=== PATIENT | male | born 1965 | race African-American/Black ===

== ENCOUNTER 2023-06-04 14:11 | Outpatient (REF) | payer OTHER, SELFPAY | END 2023-06-04 14:12 | disposition home or self-care (01) | LOC: HO.LAB 14:11 | PROVIDERS: PCP Student in an Organized Health Care Education/Training Program; Visit Provider Psychiatry & Neurology Neurology | DX: M62.81 Muscle weakness (generalized) (principal) | CPT/HCPCS: 36415; 82085; 82550 ==

== ENCOUNTER 2023-07-31 13:05 | Outpatient (AMB) | payer OTHER, SELFPAY ==
--- NOTE | 2023-07-31 13:14 | A.OFFVIS_ITS ---
Intake Vital Signs 07/31/23 13:19 Height 5 ft 7 in Weight 197 lb BMI 30.9 BP 137/83 Blood Pressure Location Lt brachial Position Sitting Pulse 62 Intake Visit Reasons: MS w/ peripheral neuropathy, muscle bx Intake Note: Patient is seen in office for evaluation and treatment of peripheral neuropathy, possible muscle bx. 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 He reports a 3 year history of symptoms beginning with back pain. He has a prior history of peripheral neuropathy involving his hands and feet. The back pain began after working in the yard and picking heavy object. The pain persisted and he eventually underwent back steroid injections. [place] his symptoms worsened over time and now is having difficulty with ambulation. This occurs even while walking on flat ground but is much worse going up and down stairs. He was noted to have elevated creatinine kinase levels. He was evaluated by Dr. Duff from Neurology and recommendation made for a muscle biopsy to help with the diagnosis. He reports symptoms are worse on his left leg than the right leg. He denies fever, chills, nausea or vomiting. PENDING SALE TO [facility] Medical History (Updated 07/31/23 @ 13:58 by Andi Koch MD) Polyneuropathy, unspecified Family History (Updated 07/31/23 @ 13:30 by VIDAL Carroll) Father No problems noted. Social History (Updated 07/31/23 @ 13:18 by VIDAL Carroll) Alcohol intake: never Patient Tobacco Use Status: Never used Tobacco Review of Systems Const All systems reviewed & are unremarkable except as noted in HPI and below Denies chills, Denies fever(s), Denies headache(s), Denies poor appetite and Denies weakness ENT Denies headache(s) Card Denies chest pain, Denies irregular heart rhythm, Denies palpitations and Denies dyspnea Resp Denies cough, Denies excessive phlegm production and Denies dyspnea GI Denies abdominal pain, Denies bloating, Denies change in bowel habits, Denies co nstipation, Denies heartburn, Denies diarrhea, Denies nausea and Denies vomiting Denies difficulty urinating and Denies urinary frequency Musc Reports as per HPI, Reports back pain, Reports muscle weakness, Reports numbness and Reports radiating pain into limb Skin/Breast Denies changing lesions and Denies unusual bruising Neuro Denies headache(s), Reports numbness, Denies paresthesias and Denies weakness Psych Denies anxiety and Denies depression Endo Denies palpitations Oren/Lymph Denies lymphadenopathy Physical Exam Vital Signs: Last Vital Signs Pulse 62 07/31/23 13:19 BP 137/83 07/31/23 13:19 BMI result Body Mass Index 30.9 Const General: cooperative and no acute distress Nutritional Appearance: well nourished Orientation/consciousness: patient oriented x3 Limitations: no limitations HEENT Head: Yes normocephalic and Yes atraumatic Ears: hearing grossly normal bilaterally Resp Effort & Inspection: normal respiratory effort, no audible wheezes, no cough and no respiratory distress Cardio Jugular venous distension: no JVD GI Inspection: Yes normal to inspection Skin Other: Warm, dry, no rash Neuro General: patient oriented x3 Extrem General: Yes no clubbing, cyanosis or edema Assessment & Plan Assessment & Plan (1) Muscular dystrophy, unspecified: Code(s): G71.00 - Muscular dystrophy, unspecified (2) Polyneuropathy, unspecified: Code(s): G62.9 - Polyneuropathy, unspecified Plan 57-year-old male patient with lower extremity weakness and peripheral neuropathy presenting for possible muscle biopsy. After discussion of the procedure, risks, and alternatives, he consents to a left thigh muscle biopsy which will be performed as a short-stay surgery at his earliest convenience. Orders: Orders Lyme IgG/IgM w/reflex to WB Today G62.9 - Polyneuropathy, unspecified Coding Level of Care Code New Pt Level 4 (94844) Diagnoses Muscular dystrophy, unspecified G71.00 Polyneuropathy, unspecified G62.9
[2023-07-31 13:19] VITALS: BP 137/83; PULSE 62; BMI 30.9
[2023-08-02 05:45] LABS: Lyme Abs Screen <0.90 index
== END 2023-07-31 13:31 | disposition home or self-care (01) ==
PROVIDERS: PCP Student in an Organized Health Care Education/Training Program; Referring Provider Psychiatry & Neurology Neurology; Visit Provider Surgery
DX: G71.00 Muscular dystrophy, unspecified (principal); G62.9 Polyneuropathy, unspecified
CPT/HCPCS: 99204

== ENCOUNTER → 2023-07-31 13:05 | Outpatient (BNVA) | payer OTHER, SELFPAY | PROVIDERS: PCP Student in an Organized Health Care Education/Training Program; Referring Provider Psychiatry & Neurology Neurology; Visit Provider Surgery | DX: G71.00 Muscular dystrophy, unspecified (principal); G62.9 Polyneuropathy, unspecified | CPT/HCPCS: 36415; 86617; 86618; 99202 ==

== ENCOUNTER 2023-08-08 10:26 | Day surgery (SDC) | payer OTHER, SELFPAY ==
--- NOTE | 2023-08-07 09:09 | HO.ANESPROP2 ---
HPI - Anesthesia Eval Consult details Narrative: 57yo M for Left Thigh Muscle Biopsy PMFSH Active Problems Active Problems: All Active Problems (Updated 07/31/23 @ 13:58 by Andi Koch MD) Polyneuropathy, unspecified (Acute) Muscular dystrophy, unspecified (Acute) Past Medical History Medical History Polyneuropathy, unspecified Family History Family History Father No problems noted. Social History Social History Alcohol intake: never Patient Tobacco Use Status: Never used Tobacco Meds Allergies Allergy/AdvReac Type Severity Reaction Status Date / Time No Known Allergies Allergy Verified 07/31/23 13:30 Home Medications Medication Instructions Recorded Confirmed Last Taken Type ergocalciferol (vitamin D2) 1,250 1,250 mcg PO QWEEK 07/31/23 08/08/23 Unknown History mcg (50,000 unit) capsule gabapentin 300 mg capsule 300 mg PO DAILY 07/31/23 08/08/23 Unknown History Exam Exam Date and Time: August 07, 2023908 Assessment and Plan Assessment Anesthesia Assessment: Chart Reviewed
--- NOTE | 2023-08-08 09:59 | PC.NURSE ---
call to pt made answer machine message left at 0930 reminder for arrival time of 0900. 0940 return call received. pt heading in
[2023-08-08 10:37] VITALS: BMI 30.5
[2023-08-08 10:41] VITALS: BP 116/74; PULSE 57; RESP 18; TEMP 36.6; O2SAT 98
[2023-08-08] MEDS: Lactated Ringers 1,000 ML 100 ML IVCONT (11:18)
--- NOTE | 2023-08-08 12:04 | HO.ANESPROP2 ---
FORM[facility]LY [facility], LATER [facility] Active Problems Active Problems: All Active Problems (Updated 07/31/23 @ 13:58 by Andi Koch MD) Polyneuropathy, unspecified (Acute) Muscular dystrophy, unspecified (Acute) Past Medical History Medical History Polyneuropathy, unspecified Family History Family History Father No problems noted. Family history of problems with anesthesia: No Surgical History History of Problems with Anesthesia: Yes Social History Social History Alcohol intake: never Patient Tobacco Use Status: Never used Tobacco Use of substances other than those prescribed or required for medical reasons: Yes Substance Use Type Other:: qod Are you DNR?: No Advance Directives: No Advance Directives Information Provided: Yes Meds Allergies Allergy/AdvReac Type Severity Reaction Status Date / Time No Known Allergies Allergy Verified 07/31/23 13:30 Active Medications: Current Medications Lactated Ringer's (Lr) 1,000 mls @ 100 mls/hr IVCONT .Q10H ELAN Last Admin: 08/08/23 11:18 Dose: 100 mls/hr Home Medications Medication Instructions Recorded Confirmed Last Taken Type ergocalciferol (vitamin D2) 1,250 1,250 mcg PO QWEEK 07/31/23 08/08/23 Unknown History mcg (50,000 unit) capsule gabapentin 300 mg capsule 300 mg PO DAILY 07/31/23 08/08/23 Unknown History Exam Exam Date and Time: August 08, 2023 1204 Height,Weight and Vital Signs: Height 5 ft 7 in Weight 88.451 kg Last Vital Signs Temp 97.8 F 08/08/23 10:41 Pulse 57 08/08/23 10:41 Resp 18 08/08/23 10:41 BP 116/74 08/08/23 10:41 Pulse Ox 98 08/08/23 10:41 O2 Del Method Room Air 08/08/23 10:41 Airway Mallampati Class: II TM Dist: >3cm Neck ROM: Full Heart: RRR Lungs: CTA Assessment and Plan Assessment Anesthesia Assessment: Anesthesia Plan Discussed and Smoking Cess. Discussed Final Anesthetic Review Family History of Problems with Anesthesia: No History of Problems with Anesthesia: Yes ASA Class: II Final Preanesthetic Review: Meds/Allgs Chart Reviewed, Consent Obtained/Reviewed and Anes Risks/Benef Reviewed Patient Risk: Low Procedure Risk: Low Anesthetic Plan Anesthetic Plan: MAC: Disposition: Standard PACU
--- NOTE | 2023-08-08 12:08 | P.OP_ITS ---
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 After administering light sedation the patient has left leg was prepped with ChloraPrep and draped in a sterile fashion. A surgical time-out was called the consent confirmed. Patient received preoperative antibiotics and Venodyne boots were in place. Local anesthesia was then infiltrated in a longitudinal fashion in the lateral left upper thigh. Incision was then made with a scalpel carried out through subcutaneous tissue to the muscle fascia. This was then incised with electrocautery in wide with Metzenbaum scissors. Muscle was then identified consistent with vastus lateralis. Hemostat was then placed below of portion of the muscle and ties placed above and below. A 12 mm clamp was then used to grasp the muscle. The muscle was then divided using Metzenbaum scissors. A 2nd specimen measuring 10 mm was then obtained again using a clamp to obtain the specimen. Both specimens were wrapped in saline solution and sent immediately to pathology. Wounds were then checked for hemostasis. Hemostasis was assured using electrocautery. Wounds were irrigated with saline solution and suctioned dry. The fascia was then closed using interrupted 3-0 Polysorb sutures. Dermis was reapproximated using interrupted 3-0 Polysorb sutures. Skin was then closed using a running subcuticular 4-0 Polysorb suture. Steri-Strips, 2 x 2 gauze and Tegaderm were then applied. The patient tolerated the procedure well. Sponge, instrument, needle counts reported as correct. The patient was transferred to PACU in stable condition.
[2023-08-08 12:29] VITALS: BP 116/75; PULSE 74; RESP 16; TEMP 36.5; O2SAT 100
[2023-08-08 12:44] VITALS: BP 125/80; PULSE 60; RESP 16; O2SAT 98
[2023-08-08 12:59] VITALS: BP 127/80; PULSE 59; RESP 16; O2SAT 99
[2023-08-08 13:14] VITALS: BP 134/78; PULSE 60; RESP 16; O2SAT 99
[2023-08-08 13:30] VITALS: BP 142/81; PULSE 68; RESP 18; TEMP 36.7; O2SAT 99
== END 2023-08-08 14:20 | disposition home or self-care (01) ==
PROVIDERS: PCP Student in an Organized Health Care Education/Training Program; Visit Provider Surgery
PROC: (CPT 20205; principal; 2023-08-08 10:50)
DX: G71.00 Muscular dystrophy, unspecified (principal); G62.9 Polyneuropathy, unspecified; Z79.899 Other long term (current) drug therapy
CPT/HCPCS: 20205; 88300; 88305; 88313; 88319; 88348; J0690; J2250

== ENCOUNTER → 2023-08-08 10:26 | Outpatient (BNV) | payer OTHER, SELFPAY | PROVIDERS: PCP Student in an Organized Health Care Education/Training Program; Visit Provider Surgery | DX: M33.22 Polymyositis with myopathy (principal) | CPT/HCPCS: 20205 ==

== ENCOUNTER 2023-08-17 11:23 | Outpatient (AMB) | payer OTHER, SELFPAY ==
--- NOTE | 2023-08-17 11:27 | MHC.OFFVIS ---
Intake Vital Signs 08/17/23 11:38 Height 5 ft 7 in Weight 196 lb 10.437 oz BMI 30.8 Respiration 16 Pulse 70 Intake Visit Reasons: S/P muscle bx Lt thigh Intake Note: Patient is seen in office for post op assessment post muscle biopsy of the left thigh. Patient c/o: admits to sore in the area, here for results [employer] Required: No Accompanied by: Self / Same As Patient Allergies No Known Allergies Allergy (Verified 08/17/23 11:42) Medication List - Last Reconciled 08/21/23 by Andi Koch MD ergocalciferol (vitamin D2) 1,250 mcg PO QWEEK gabapentin 300 mg PO DAILY oxycodone 5 mg PO Q6H PRN HPI HPI Comments History of Present Illness Details 57-year-old male patient returning following left thigh muscle biopsy. He tolerated the procedure well and denies any ongoing symptoms. Pathology results are pending at this time. [facility] Medical History Polyneuropathy, unspecified Surgical History History of biopsy (08/08/23) Family History Father No problems noted. Social History Alcohol intake: never Patient Tobacco Use Status: Never used Tobacco Physical Exam Vital Signs: Last Vital Signs Pulse 70 08/17/23 11:38 Resp 16 08/17/23 11:38 BMI result Body Mass Index 30.8 Const General: comfortable Nutritional Appearance: well nourished Orientation/consciousness: patient oriented x3 Resp Effort & Inspection: normal respiratory effort, no audible wheezes and no cough Neuro General: patient oriented x3 Extrem Other: Longitudinal incision in the upper left thigh is clean, dry, and intact without redness or discharge. No hematoma or seroma is appreciated. Assessment & Plan Assessment & Plan (1) Polyneuropathy, unspecified: Code(s): G62.9 - Polyneuropathy, unspecified (2) Muscular dystrophy, unspecified: Code(s): G71.00 - Muscular dystrophy, unspecified Plan Patient returns 1 week following left thigh muscle biopsy. Tolerated the procedure well and his wounds are healing nicely. We are still awaiting pathology from [facility]. This will be forwarded to neurology when available. Coding Level of Care Code Global (29314) Diagnoses Polyneuropathy, unspecified G62.9 Muscular dystrophy, unspecified G71.00
[2023-08-17 11:38] VITALS: PULSE 70; RESP 16; BMI 30.8
== END 2023-08-17 12:02 | disposition home or self-care (01) ==
PROVIDERS: PCP Student in an Organized Health Care Education/Training Program; Visit Provider Surgery
DX: G62.9 Polyneuropathy, unspecified (principal); G71.00 Muscular dystrophy, unspecified
CPT/HCPCS: 99212

== ENCOUNTER → 2023-08-17 11:23 | Outpatient (BNVA) | payer OTHER, SELFPAY | PROVIDERS: PCP Student in an Organized Health Care Education/Training Program; Visit Provider Surgery | DX: G62.9 Polyneuropathy, unspecified (principal); G71.00 Muscular dystrophy, unspecified; Z98.890 Other specified postprocedural states | CPT/HCPCS: 99212 ==

== ENCOUNTER 2024-03-18 13:50 | Outpatient (REF) | payer OTHER, SELFPAY ==
[2024-03-18 15:03] LABS: Anion Gap 11 (12-20); Blood Urea Nitrogen 16 mg/dL (9-16); Calcium 9.5 mg/dL (8.4-10.2); Carbon Dioxide 26 mmol/L (22-29); Chloride 108 mmol/L (96-108); Estimated Glomerular Filt Rate > 60; Glucose Random 78 mg/dL (60-115); Potassium 4.3 mmol/L (3.3-5.1); Sodium 141 mmol/L (135-145)
[2024-03-18 15:32] LABS: Folate 6.8 ng/mL (> or = 4.0); Vitamin B12 577 pg/mL (200-900)
[2024-03-19 04:06] LABS: Syphilis Screen Nonreactive (Nonreactive)
== END 2024-03-18 13:51 | disposition home or self-care (01) ==
LOC: HO.LAB 13:50
PROVIDERS: Visit Provider Psychiatry & Neurology Neurology
DX: G62.9 Polyneuropathy, unspecified (principal)
CPT/HCPCS: 36415; 80048; 82607; 82746; 86780

== ENCOUNTER 2025-06-09 12:43 | Outpatient (AMB) | payer OTHER, SELFPAY ==
--- NOTE | 2025-06-09 12:47 | A.OFFVIS_ITS ---
Intake Visit Reasons: fu Allergies No Known Allergies Allergy (Verified 08/17/23 11:42) Medication List - Last Reconciled 06/09/25 by William Duff MD duloxetine 20 mg PO DAILY ergocalciferol (vitamin D2) 1,250 mcg PO QWEEK gabapentin 300 mg PO DAILY lisinopril 20 mg PO DAILY oxycodone 5 mg PO Q6H PRN HPI Comments Details: 59 yo man with myopathy of unknown cause, and neuropathy symptoms treated wt gabapentin. Muscle biopsy showed changes suggestive of underlying neuropathic process. [facility] Medical History (Updated 06/09/25 @ 12:53 by William Duff MD) Fibromyalgia Myopathy Peripheral neuropathy Polyneuropathy, unspecified Surgical History History of biopsy (08/08/23) Family History Father No problems noted. Social History Alcohol intake: never Patient Tobacco Use Status: Never used Tobacco Assessment & Plan Assessment & Plan (1) Fibromyalgia: Comment: Meds tried: Duloxetine, Gabapentin Muscle biopsy at [facility] in Jul 2023: rare angulated atrophic fibers (probably neuropathic injury) MRI LS spine WO at [facility] in March 2023: Mild DJD MRI T spine WO at [facility] in March 2023: Mild DJD NCV/EMG LE (in office) Moderately severe right peroneal neuropathy. Mild peripheral neuropathy affecting sensory nerves. 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
--- OUTSIDE RECORDS SUMMARY | 2025-06-09 13:56 | XMS_ITS | Clinical Summary ---
Author Organization [facility] Address [address] [place] [address] Phone Care Team Providers Care Rest Room Matron Name Role Phone Braden Bey MD Primary Care Provider [phone] Allergies Active Allergy Reactions Criticality Noted Date Comments Onion 10/14/2021 Pepper (Genus Capsicum) 10/14/2021 Medications tadalafiL (CIALIS) 5 mg tablet Take 1 Tablet by mouth daily. 2 Active meloxicam (MOBIC) 7.5 mg tablet Take 1 tablet (7.5 mg total) by mouth at bedtime as needed for moderate pain or mild pain. 90 tablet 2 5 Active ferrous sulfate 325 mg (65 mg iron) EC tablet Take 1 tablet (325 mg total) by mouth 1 (one) time each day with breakfast. Do not crush, chew, or split. 90 each 1 5 025 Active ascorbic acid (Vitamin C) 250 mg tablet Take 1 tablet (250 mg total) by mouth 1 (one) time each day. 90 each 1 5 025 Active acetaminophen (TYLENOL) 500 mg tablet Take 1 tablet (500 mg total) by mouth every 6 (six) hours if needed for mild pain. for pain 60 tablet 4 5 Active fexofenadine (RFANKI) 180 mg tablet TAKE 1 TABLET BY MOUTH EVERY DAY 90 tablet 1 5 Active lisinopriL (PRINIVIL,ZEST RIL) 20 mg tablet TAKE 1 TABLET BY MOUTH EVERY DAY 90 tablet 1 5 Active lisinopriL (PRINIVIL,ZEST RIL) 20 mg tablet TAKE 1 TABLET BY MOUTH EVERY DAY 90 tablet 1 4 025 Discontinued Active Problems Problem Noted Date Diagnosed Date Primary hypertension 01/07/2025 Erectile dysfunction 01/07/2025 Prediabetes 01/07/2025 Childhood asthma 09/18/2024 Constipation 11/20/2023 Gastroesophageal reflux disease 11/20/2023 Neuropathy 10/02/2023 Overview (09/18/2024): Last Assessment & Plan: Mr. Partida continues with numbness and tingling and pain in the bilateral anterior thighs. He had an evaluation and an EMG and nerve conduction study with Dr. Duff in [place]. This did reveal a moderately severe right peroneal neuropathy and mild peripheral neuropathy affecting the sensory nerves. I once again went over his MRI's of the thoracic and lumbar spine from [facility] in March 2023. These did show stable L5-S1 degenerative disc disease and no high-grade stenosis. Dr. Richey does not have any surgery to offer at this time. We talked about physical therapy, acupuncture, chiropractic treatment, and yoga all as reasonable conservative modalities. He may get some relief by increasing his gabapentin dose schedule. He is welcome to follow-up with us in the future on an as-needed basis. Vitamin D deficiency 01/25/2023 BPH (benign prostatic hyperplasia) 11/06/2022 Gastritis 11/02/2020 Lumbar radiculitis 11/02/2020 DDD (degenerative disc disease), lumbar 05/25/20 20 Overview (09/18/2024): Last Assessment & Plan: Mr. Partida has had progression in his symptoms since this all started with lower back pain 3 years ago. He has had no history of back surgery but underwent 2 cortisone injections 3 years ago. This has progressed such that he feels numb from his waist down for the past 6 months. He demonstrates this is starting with his hands on his hips and going to his feet. The left leg is significantly worse and it is described as being extremely painful on the inside, not the bone or the muscle, it just hurts he drags it as he is walking. He tends to lead with that leg because he uses his hand to push it forward. He denies incontinence but states that he has had decrease sensation with bowel movements. On further questioning, he denies neck pain but says his hands go numb, he feels there is been loss of muscle mass in the left leg and that his left ankle get stuck On exam, there is general decrease sensation to light touch below the hip, strength is 5/5 though with some delay in left hip flexion and knee extension. Reflexes are slightly brisk 2+ at the knees left more than right with 2-3 beats of clonus on the right. His gait appears a little stiff and spastic. Review of his lumbar spine MRI from September 2021 shows mild disc desiccation at L5-S1 with loss of height posteriorly. There is no central or foraminal stenosis. At this point, I am going to send him for repeat lumbar spine MRI with a thoracic MRI to evaluate for cord compression to account for decreased perineal sensation, heaviness in the left leg, this general feeling of numbness and left lower extremity atrophy. If this is unrevealing, I will send him to neurology for an assessment and probable EMG. Anxiety 08/30/2018 Depression 08/30/2018 PTSD (post-traumatic stress disorder) 08/30/2018 Anatomical narrow angle 07/15/2018 Astigmatism with presbyopia, bilateral 8 Immunizations Name Administration Dates Next Due Moderna SARS-CoV-2 COVID-19, mRNA, LNP-S, preservative free 03/31/2021,03/07/2021 Td Tetanus diptheria (Tdvax) 7yo and older 11/26 Surgical History Surgery Date Site/Laterality Comments COLONOSCOPY 11/26/2018 - 11/25/2019 Medical History Medical History Date Comments Childhood asthma DX:Childhood as thma PTSD (post-traumatic stress disorder) 08/30/2018 DX:PTSD (post-traumatic stress disorder) Anxiety 08/30/2018 DX:Anxiety Depression 08/30/2018 DX:Depression History of Helicobacter pylo ri infection 11/02/2020 DX:History of Helicobacter p ylori infection Gastritis 11/02/2020 DX:Gastritis BPH (benign prostatic hyperplasia) 11/06/2022 DX:BPH (benign prostatic hyperplasia) DDD (degenerative disc disease), lumbar 05/25/20 20 DX:DDD (degenerative disc disease), lumbar Astigmatism with presbyopia, bilateral 8 DX:Astigmatism with presbyopia, bilateral Lumbar radiculitis 11/02/2020 DX:Lumbar rad iculitis Vitamin D deficiency DX:Vitamin D deficiency Gastroesophageal reflux disease 11/20/2023 DX:Gastroesophageal reflux disease Primary hypertension 01/07/2025 Family History Medical History Relation Name Comments No Known Problems Aunt No Known Problems Brother No Known Problems Father No Known Problems Maternal Grandfather No Known Problems Maternal Grandmother Other: Diabetes, Hypertension Mother No Known Problems Other No Known Problems Paternal Grandfather No Known Problems Paternal Grandmother No Known Problems Sister No Known Problems Uncle father side Blindness Neg Hx Cataracts Neg Hx Glaucoma Neg Hx Macular degeneration Neg Hx Strabismus Neg Hx Relation Name Status Comments Aunt Brother Alive Father Alive Maternal Grandfather Maternal Grandmother Mother Alive Other Paternal Grandfather Paternal Grandmother Sister Alive Uncle father side Alive Social History Tobacco Use Types Packs/Day Years Used Date Smoking Tobacco: Former Cigarettes 0.5 17 0 11/26/1979 - 11/26/1996 Smokeless Tobacco: Never Tobacco Cessation:Counseling Given: Not Answered Alcohol Use Standard Drinks/Week Comments Yes 0 (1 standard drink = 0.6 oz pur e alcohol) occ8 Education Answer Date Recorded What is the highest level of school you have completed or the highest degree you have received? GED or equivalent 10/2025 Sex and Gender Information Value Date Recorded Sex Assigned at Not on file Legal Sex Male 4:24 AM EST Gender Identity Not on file Sexual Orientation Not on file Obstetrics History Last Filed Vital Signs Vital Sign Reading Time Taken Comments Blood Pressure 132/86 01/07/2025 11:15 AM EST Pulse 65 01/07/2025 11:15 AM EST Temperature 36.1 C (97 F) 09/30/2024 8:54 AM EST Respiratory Rate - - Oxygen Saturation 98% 01/07/2025 11:15 AM EST Inhaled Oxygen Concentration - - Weight 90.7 kg (200 lb) 01/07/2025 11:15 AM EST Height 170.2 cm (5' 7 ) 10/31/2024 9:08 AM EST Body Mass Index 31.32 10/31/2024 9:08 AM EST Plan of Treatment Health Maintenance Due Date Last Done Comments Pneumococcal Vaccine: 50+ Years (1 of 2 - PCV) 1984 Zoster Vaccines (1 of 2) 2015 Hepatitis B Vaccines (2 of 3 - 19+ 3-dose series) 02/20/2017 01/23/2017 HIV Screening 11/04/2022 COVID-19 Vaccine (3 - 2023-2 5 season) 2024 03/31/2021, 03/07/2021 Influenza Vaccine (#1) 2025 Depression Screening 01/07/2026 01/07/2025 Social Influencers of Health Screening 01/07/2026 01/07/2025 Hypertension/CHF/CAD Annual BMP Blood Test 01/14/2026 01/14/2025, 01/24/2023 DTaP,Tdap,and Td Vaccines (3 - Td or Tdap) 01/23/2027 01/23/2017, 11/26/2016 Colorectal Cancer Screening: Colonoscopy 08/05/2029 08/05/2019 Cholesterol Screening (Lipid Panel) 01/14/2030 01/14/2025, 01/24/2023 RSV Immunization Adult Patients (1 - 1-dose 75+ series) 2040 Hepatitis C Screening Completed 11/05/2019 HIB Vaccines Aged Out No longer eligi ble based on patient's age to complete this topic HPV Vaccines Aged Out No longer eligi ble based on patient's age to complete this topic Hepatitis A Vaccines Aged Out No long er eligible based on patient's age to complete this topic IPV Vaccines Aged Out No longer eligi ble based on patient's age to complete this topic MMR Vaccines Aged Out No longer eligi ble based on patient's age to complete this topic Meningococcal ACWY Vaccine Aged Out N o longer eligible based on patient's age to complete this topic Meningococcal B Vaccine Aged Out No l onger eligible based on patient's age to complete this topic RSV Immunization Patients Under 20 months Aged Out No longer eligible b ased on patient's age to complete this topic Varicella Vaccines Aged Out No longer eligible based on patient's age to complete this topic Procedures Procedure Name Priority Date/Time Associated Diagnosis Comments COMPREHENSIVE METABOLIC PANEL Routine 01/14/2025 11:05 AM EST Encounter for annual physical exam LIPID PANEL WITH REFLEX TO DIRECT LDL Routine 01/14/2025 11:05 AM EST Encounter for lipid screening for cardiovascular disease HM HEPATITIS C SCREENING Routine 11/05/2019 COLONOSCOPY Routine 08/05/2019 from Last 3 Months or Most Recently Relevant to Health Maintenance Results * Lipid panel with reflex to direct LDL (01/14/2025 11:05 AM EST) Cholesterol 184 0 - 200 mg/dL LAB CHEMISTRY METHOD 01/14/2025 3:58 PM EST [facility] Triglycerides 64 0 - 150 mg/dL LAB CHEMISTRY METHOD 01/14/2025 3:58 PM EST [facility] HDL 71 >=40 mg/dL LAB CHEMISTRY METHOD 01/14/2025 3:58 PM EST [facility] LDL Calculated 100 0 - 100 mg/dL LAB CHEMISTRY METHOD 01/14/2025 3:58 PM EST [facility] VLDL Cholesterol Esvin 12.8 mg/dL LAB CHEMISTRY METHOD 01/14/2025 3:58 PM EST [facility] Non HDL Chol. (LDL+VLDL) 113 <145 mg/dL LAB CHEMISTRY METHOD 01/14/2025 3:58 PM EST [facility] Chol/HDL Ratio 2.6 0.0 - 4.4 LAB CHEMISTRY METHOD 01/14/2025 3:58 PM EST [facility] Blood Venous blood specimen / Unknown Venipuncture / Unknown 01/14/2025 11:05 AM EST 01/14/2025 11:06 AM EST us Braden Bey MD LAB BLOOD ORDERABLES Final Resul t [facility] [address] [place] [address], * (ABNORMAL) Comprehensive metabolic panel (01/14/2025 11:05 AM EST) Sodium 142 133 - 145 mmol/L LAB CHEMISTRY METHOD 01/14/2025 3:58 PM [facility] Potassium 4.1 3.5 - 5.5 mmol/L LAB CHEMISTRY METHOD 01/14/2025 3:58 PM [facility] Chloride 112(H) 96 - 110 mmol/L LAB CHEMISTRY METHOD 01/14/2025 3:58 PM [facility] CO2 24 21 - 32 mmol/L LAB CHEMISTRY METHOD 01/14/2025 3:58 PM [facility] Anion Gap 6 3 - 11 LAB CHEMISTRY METHOD 01/14/2025 3:58 PM [facility] Glucose 91 70 - 100 mg/dL LAB CHEMISTRY METHOD 01/14/2025 3:58 PM [facility] BUN 17 5 - 25 mg/dL LAB CHEMISTRY METHOD 01/14/2025 3:58 PM [facility] Creatinine 1.31(H) 0.70 - 1.30 mg/dL LAB CHEMISTRY METHOD 01/14/2025 3:58 PM [facility] eGFR 63 >=60 mL/min/1. 73m2 LAB CHEMISTRY METHOD 01/14/2025 3:58 PM [facility] Comment:Calculation based on the Chronic Kidney Disease Epidemiology Collaboration (CKD-EPI) equation refit without adjustment for race. BUN/Creatinine Ratio 13.0 LAB CHEMISTRY METHOD 01/14/2025 3:58 PM [facility] Calcium 9.3 8.5 - 10.5 mg/dL LAB CHEMISTRY METHOD 01/14/2025 3:58 PM [facility] AST (SGOT) 14 10 - 42 unit/L LAB CHEMISTRY METHOD 01/14/2025 3:58 PM [facility] ALT (SGPT) 16 10 - 60 unit/L LAB CHEMISTRY METHOD 01/14/2025 3:58 PM [facility] Alkaline Phosphatase 83 42 - 121 unit/L LAB CHEMISTRY METHOD 01/14/2025 3:58 PM [facility] Total Protein 6.7 6.0 - 8.0 g/dL LAB CHEMISTRY METHOD 01/14/2025 3:58 PM EST [facility] Albumin 3.7 3.2 - 5.0 g/dL LAB CHEMISTRY METHOD 01/14/2025 3:58 PM EST [facility] Total Bilirubin 0.5 0.0 - 1.4 mg/dL LAB CHEMISTRY METHOD 01/14/2025 3:58 PM EST [facility] Blood Venous blood specimen / Unknown Venipuncture / Unknown 01/14/2025 11:05 AM EST 01/14/2025 11:06 AM EST Braden Bey MD LAB BLOOD ORDERABLES Final Resul t [facility] [address] [place] [address], * Hepatitis C Screening (11/05/2019) Hepatitis C Screening Abstracted Historical Provider HEALTH MAINTENANCE Final Result * Colonoscopy (08/05/2019) Colonoscopy No interpretation , Abstracted Anatomical Region Laterality Modality Other Historical Provider HEALTH MAINTENANCE Final Result from Last 3 Months or Most Recently Relevant to Health Maintenance Insurance [facility] [facility] Care Teams Rest Room Matron Relationship Specialty Start Date End Date Braden Bey MD [address] [place] [address] [address] [place] [address] PCP - General 12/07/22
--- OUTSIDE RECORDS SUMMARY | 2025-06-09 13:56 | XMS_ITS | Clinical Summary ---
Author Organization [facility] Address [address] [place] [address] Care Team Providers Care Bonsai Culturist Name Role Phone Angella Hdz Primary Care Provider Allergies No known active allergies Medications Medication Sig Dispensed Refills Start Date End Date Status pantoprazole (PROTONIX) 20 MG tablet Take 20 mg by mouth 2 (two) times a day. 0 Active diclofenac (VOLTAREN) 50 MG EC tablet Take 50 mg by mouth 2 (two) times a day. 0 Active Active Problems Problem Noted Date Diagnosed Date Anemia 12/16/2020 Lumbar radiculitis 11/02/2020 DDD (degenerative disc disease), lumbar 05/25/20 20 Depression 08/30/2018 PTSD (post-traumatic stress disorder) 08/30/2018 Social History Tobacco Use Types Packs/Day Years Used Date Smoking Tobacco: Former Cigarettes Q uit: 11/26/1996 Smokeless Tobacco: Never Alcohol Use Standard Drinks/Week Comments Yes 0 (1 standard drink = 0.6 oz pur e alcohol) rarely Sex and Gender Information Value Date Recorded Sex Assigned at Not on file Gender Identity Not on file Sexual Orientation Not on file Last Filed Vital Signs Vital Sign Reading Time Taken Comments Blood Pressure 137/88 12/16/2020 10:22 AM EST Pulse 72 12/16/2020 10:22 AM EST Temperature 36.4 C (97.6 F) 12/16/2020 10:22 AM EST Respiratory Rate - - Oxygen Saturation 98% 12/16/2020 10:22 AM EST Inhaled Oxygen Concentration - - Weight 81.2 kg (179 lb) 12/16/2020 10:22 AM EST Height 170.2 cm (5' 7 ) 12/16/2020 10:22 AM EST Body Mass Index 28.04 12/16/2020 10:22 AM EST Plan of Treatment Health Maintenance Due Date Last Done Comments Hepatitis B Vaccines (1 of 3 - 3-dose series) 1965 Hepatitis C Screening 1965 COVID-19 Vaccine (#1) 04/12/1966 Depression Screening 1977 Preventative Health Evaluation 1983 DTap / Tdap / Td (1 - Tdap) 1984 Colon Cancer Screening (Colonoscopy) 2010 Shingrix-Zoster Vaccine (1 of 2) 2015 Influenza Vaccine (#1) 2025 Pneumococcal Vaccine Aged Out No long er eligible based on patient's age to complete this topic RSV Ped < 20 months Aged Out No longe r eligible based on patient's age to complete this topic Care Teams Bonsai Culturist Relationship Specialty Start Date End Date Angella Hdz [address] [place] [address] PCP - General Internal Medicine 12/16/20
== END 2025-06-09 13:04 | disposition home or self-care (01) ==
LOC: HO.HSM 12:44
PROVIDERS: PCP Student in an Organized Health Care Education/Training Program; Visit Provider Psychiatry & Neurology Neurology
DX: M79.7 Fibromyalgia (principal); G62.9 Polyneuropathy, unspecified
CPT/HCPCS: 99214

== ENCOUNTER 2025-09-08 12:07 | Outpatient (AMB) | payer OTHER, SELFPAY ==
--- NOTE | 2025-09-08 12:13 | A.OFFVIS_ITS ---
Intake Visit Reasons: 3 mnts Allergies No Known Allergies Allergy (Verified 08/17/23 11:42) HPI Comments Details: The patient is a 59-year-old male presenting with left leg pain. He describes severe pain encompassing the entire leg, severely hindering his mobility. The pain forces him to frequently sit and interrupts his ability to walk more than a short distance without pause. Additionally, he reports the necessity to lift the leg while walking and recurring instances of buckling. He notes noticeable a reduction in size of the leg compared to previous observations. Significant discomfort is also present in the feet, centering on the ball area. Corroborating his leg pain, the patient mentions concurrent back pain characterized by degenerative changes identified in a previously conducted MRI. A nerve test was also performed about two years ago to assess these issues. Despite previous interventions and assessments, his symptoms have persisted unabated. [facility] Medical History (Updated 09/08/25 @ 12:18 by William Duff MD) Fibromyalgia Myopathy Peripheral neuropathy Polyneuropathy, unspecified Surgical History History of biopsy (08/08/23) Family History Father No problems noted. Social History Alcohol intake: never Patient Tobacco Use Status: Never used Tobacco Review of Systems Const Details: - Musculoskeletal: Reports left leg pain, inability to walk long distances, and leg muscle weakness noted by leg skinniness. - Neurological: Reports episodes of leg buckling. - Back: Reports pain, history of degenerative disc disease. - Foot: Reports pain at the bottom and ball of feet. Physical Exam Neuro Other: Mental Status: Alert and oriented to person, place, and time. Normal attention. Normal spontaneous speech, fluency, and comprehension. No obvious issues with mood and memory. Affect is appropriate. Cranial Nerves: CN II: Visual dumont full to confrontation, visual acuity intact. CN III, IV, : Pupils equal, round, reactive to light and accommodation. Extraocular movements are normal. CN V: Facial sensation is normal. CN VII: Facial movements symmetrical. CN VIII: Hearing intact to bedside conversation is normal. CN IX, X: Palate elevates symmetrically. CN XI: Shoulder shrug and head turn symmetrical. CN XII: Tongue midline without atrophy or fasciculations. Knee and ankle reflexes were symmetrical and 1+. He was walking cautiously with a cane. Extrapyramidal: Full facial expressions and blinking. No rigidity. Movements are appropriate with no tremor or abnormality. Speech: Normal; no dysarthria or tremor. Assessment & Plan Assessment & Plan (1) Fibromyalgia: Comment: Meds tried: Duloxetine, Gabapentin Muscle biopsy at [facility] in Jul 2023: rare angulated atrophic fibers (probably neuropathic injury) MRI LS spine WO at [facility] in March 2023: Mild DJD MRI T spine WO at [facility] in March 2023: Mild DJD NCV/EMG LE (in office) Moderately severe right peroneal neuropathy. Mild peripheral neuropathy affecting sensory nerves. 06/13/23 Code(s): M79.7 - Fibromyalgia Category: Medical (2) Left leg pain: Code(s): M79.605 - Pain in left leg Category: Medical Plan 59 years old man with complain of bilateral foot pain and leg pain with neuropathic features. Today he complain of severe left leg pain radiating from back to his whole leg and affecting his legs strength. Previously he had EMG nerve conduction study in 2022 that revealed mild axonal sensory motor peripheral neuropathy. MRI of lumbosacral spine at [facility] revealed mild degenerative changes. Another electrical study was arranged to see if there was any evidence of radiculopathy explaining his symptoms Orders: Orders NE nerve conduction velocity Today M79.605 - Pain in left leg NE electromyogram (EMG) Today M79.605 - Pain in left leg Coding Level of Care Code Est Pt Level 4 (24305) Diagnoses Fibromyalgia M79.7 Left leg pain M79.605
--- OUTSIDE RECORDS SUMMARY | 2025-09-08 14:48 | XMS_ITS | Clinical Summary ---
Author Organization [facility] Address [address] [place] [address] Care Team Providers Care Municipal Maintenance Worker Name Role Phone Angella Hdz Primary Care Provider [phone] Allergies No known active allergies Medications Medication [...] age to complete this topic Care Teams Municipal Maintenance Worker Relationship Specialty Start Date End Date Angella Hdz [address] [place] [address] PCP - General Internal Medicine 12/16/20
--- OUTSIDE RECORDS SUMMARY | 2025-09-08 14:48 | XMS_ITS | Encounter Summary ---
Author Organization [facility] Address [address] [place] [address] Care Team Providers Care Farmworker Vegetable Name Role Phone Braden Bey MD Primary Care Provider [phone] Encounter Details Date Type Department Care Team (Late st Contact Info) Description 07/24/2025 Lab Requisition [facility] Lab [address] [facility] [place] [address] [place], [place] [address] [place] [address] Frequency of micturition Social History Tobacco Use Types Packs/Day Years Used Date Smoking Tobacco: Former Cigarettes 0.5 17 0 11/26/1979 - 11/26/1996 Smokeless Tobacco: Never Alcohol Use Standard [...] on file Sexual Orientation Not on file documented as of this encounter Plan of Treatment Not on file documented as of this encounter Procedures Procedure Name Priority Date/Time Associated Diagnosis Comments BACTERIAL IDENTIFICATION AND SUSCEPTIBILITY, AEROBIC Routine 07/23/2025 12:00 AM EDT Frequency of micturition documented in this encounter Results * Bacterial identification and susceptibility, aerobic (07/23/2025 12:00 AM EDT) Culture, Bacterial ID and Sensitivity Light Normal Urogenital krista. 07/25/2025 7:51 AM EDT [facility] Other Urine specimen from urethra / Unknown 07/23/2025 07/24/2025 10:21 AM EDT us [facility] MICROBIOLOGY - GENERAL ORDERABLES Final Result [facility] [address] [place] [address], documented in this encounter Visit Diagnoses Diagnosis Frequency of micturition Urinary frequency documented in this encounter Care Teams Farmworker Vegetable Relationship Specialty Start Date End Date Braden Bey MD [address] [place] [id number] PCP - General 12/07/22 documented as of this encounter
--- OUTSIDE RECORDS SUMMARY | 2025-09-08 14:48 | XMS_ITS | Clinical Summary ---
Author Organization 175 [facility] Address 175 [place] [address] Phone Care Team Providers Care Inspector Conveyor Line Name Role Phone Braden Bey MD Primary Care Provider [phone] Allergies Active Allergy Reactions Criticality Noted Date Comments Onion 10/14/2021 Pepper (Genus Capsicum) 10/14/2021 Medications tadalafiL (CIALIS) 5 mg tablet Take 1 Tablet by mouth daily. 10/04/20 22 Active meloxicam (MOBIC) 7.5 mg tablet Take 1 tablet (7.5 mg total) by mouth at bedtime as needed for moderate pain or mild pain. 90 tablet 2 01/06/20 25 Active acetaminophen (TYLENOL) 500 mg tablet Take 1 tablet (500 mg total) by mouth every 6 (six) hours if needed for mild pain. for pain 60 tablet 4 02/12/20 25 Active ferrous sulfate 325 mg (65 mg iron) EC tablet Take 1 tablet (325 mg total) by mouth 1 (one) time each day with breakfast. 90 tablet 1 07/15/20 25 Active fexofenadine (FRANKI) 180 mg tablet TAKE 1 TABLET BY MOUTH EVERY DAY 90 tablet 1 08/10/20 25 Active lisinopriL (PRINIVIL,ZEST RIL) 30 mg tablet Take 1 tablet (30 mg total) by mouth 1 (one) time each day. 30 each 08/26/20 25 026 Active fexofenadine (FRANKI) 180 mg tablet TAKE 1 TABLET BY MOUTH EVERY DAY 90 tablet 1 02/12/20 25 025 Discontinued lisinopriL (PRINIVIL,ZEST RIL) 20 mg tablet TAKE 1 TABLET BY MOUTH EVERY DAY 90 tablet 1 05/11/20 25 025 Discontinued(Do se adjustment) Active Problems Problem Noted Date Diagnosed Date Primary hypertension 01/07/2025 Erectile dysfunction 01/07/2025 Prediabetes 01/07/2025 Childhood asthma 09/18/2024 Constipation 11/20/2023 Gastroesophageal reflux disease 11/20/2023 Neuropathy 10/02/2023 Overview (09/18/2024): Last Assessment & Plan: Mr. Partida continues with numbness and tingling and pain in the bilateral anterior thighs. He had an evaluation and an EMG and nerve conduction study with Dr. Duff in [place]. This did reveal a moderately severe right peroneal neuropathy and mild peripheral neuropathy affecting the sensory nerves. I once again went over his MRI's of the thoracic and lumbar spine from [facility] in March 2023. These did show stable [...] 11/02/2020 DDD (degenerative disc disease), lumbar 05/25/20 Overview (09/18/2024): Last Assessment & Plan: Mr. [...] angle 07/15/2018 Astigmatism with presbyopia, bilateral 8 Encounters Date Type Department Care Team Description 08/26/2025 2:15 PM EDT Office Visit Internal Medicine - [place] [address] [address] Braden Bey MD Chronic back pain, unspecified back location, unspecified back pain laterality (Primary Dx); Pain of left lower extremity; Elevated blood pressure reading; Hearing problem of both ears 07/24/2025 Lab Requisition [facility] - Main Lab 299 [facility] [place] [address] Janay Arzola, PA Frequency of micturition 07/17/2025 Telephone Internal Medicine - [place] 175 [facility] [address] [place] [address] Braden Bey MD 07/07/2025 Telephone Internal Medicine [facility] 175 [facility] [address] [place] [address] Braden Bey MD from Last 3 Months Immunizations Immunization Administration Dates Next Due Moderna SARS-CoV-2 COVID-19, [...] Sign Reading Time Taken Comments Blood Pressure 160/100 08/26/2025 2:18 PM EDT Pulse 51 08/26/2025 2:10 PM EDT Temperature 36.2 C (97.1 F) 08/26/2025 2:10 PM EDT Respiratory Rate - - Oxygen Saturation 98% 08/26/2025 2:10 PM EDT Inhaled Oxygen Concentration - - Weight 89.8 kg (198 lb) 08/26/2025 2:10 PM EDT Height 170.2 cm (5' 7 ) 08/26/2025 2:10 PM EDT Body Mass Index 31.01 08/26/2025 2:10 PM EDT Plan of Treatment Health Maintenance Due Date Last Done Comments Pneumococcal Vaccine: 50+ Years (1 of 2 - PCV) 1984 Zoster Vaccines (1 of 2) 2015 Hepatitis B Vaccines (2 of 3 - 19+ 3-dose series) 02/20/2017 01/23/2017 HIV Screening 11/04/2022 Depression Screening 11/26/2024 COVID-19 Vaccine (3 - 2024-2 6 season) 2025 03/31/2021, 03/07/2021 Influenza Vaccine (#1) 2025 Social Influencers of Health Screening 01/07/2026 01/07/2025 [...] 07/23/2025 12:00 AM EDT Frequency of micturition COMPREHENSIVE METABOLIC PANEL Routine 01/14/2025 11:05 AM EST Encounter for annual physical exam LIPID PANEL WITH REFLEX TO DIRECT LDL Routine 01/14/2025 11:05 AM EST Encounter for lipid screening for cardiovascular disease HEPATITIS C SCREENING Routine 11/05/2019 COLONOSCOPY Routine 08/05/2019 from Last 3 Months or Most Recently Relevant to Health Maintenance Results * Bacterial identification and susceptibility, aerobic (07/23/2025 12:00 AM EDT) Culture, Bacterial ID and Sensitivity Light Normal Urogenital krista. 07/25/2025 7:51 AM EDT [facility] Other Urine specimen from urethra / Unknown 07/23/2025 07/24/2025 10:21 AM EDT us Janay PETERSON LAB MICROBIOLOGY - GENERAL ORDERABLES Final Result [facility] [address] [place] [address], [place] [phone] * Lipid panel with reflex to direct LDL (01/14/2025 11:05 AM EST) Cholesterol 184 0 - 200 mg/dL LAB CHEMISTRY METHOD 01/14/2025 3:[address] [facility] Triglycerides 64 0 - 150 mg/dL LAB CHEMISTRY METHOD 01/14/2025 3:[address] [facility] HDL 71 >=40 mg/dL LAB CHEMISTRY METHOD 01/14/2025 3:[address] [facility] LDL Calculated 100 0 - 100 mg/dL LAB CHEMISTRY METHOD 01/14/2025 3:[address] [facility] VLDL Cholesterol Esvin 12.8 mg/dL LAB CHEMISTRY METHOD 01/14/2025 3:[address] [facility] Non HDL Chol. (LDL+VLDL) 113 <145 mg/dL LAB CHEMISTRY METHOD 01/14/2025 3:[address] [facility] Chol/HDL Ratio 2.6 0.0 - 4.4 LAB CHEMISTRY METHOD 01/14/2025 3:[address] [facility] Blood Venous blood specimen / Unknown Venipuncture / Unknown 01/14/2025 11:05 AM EST 01/14/2025 11:06 AM EST us Braden Bey MD LAB BLOOD ORDERABLES Final Resul t [facility] [address] [place] [address], * (ABNORMAL) Comprehensive metabolic panel (01/14/2025 11:05 AM EST) Pathologist [facility] Sodium 142 133 - 145 mmol/L LAB CHEMISTRY METHOD 01/14/2025 3:[address] [facility] Potassium 4.1 3.5 - 5.5 mmol/L LAB CHEMISTRY METHOD 01/14/2025 3:[address] [facility] Chloride 112(H) 96 - 110 mmol/L LAB CHEMISTRY METHOD 01/14/2025 3:[address] [facility] CO2 24 21 - 32 mmol/L LAB CHEMISTRY METHOD 01/14/2025 3:[address] [facility] Anion Gap 6 3 - 11 LAB CHEMISTRY METHOD 01/14/2025 3:[address] [facility] Glucose 91 70 - 100 mg/dL LAB CHEMISTRY METHOD 01/14/2025 3:[address] [facility] BUN 17 5 - 25 mg/dL LAB CHEMISTRY METHOD 01/14/2025 3:[address] [facility] Creatinine 1.31(H) 0.70 - 1.30 mg/dL LAB CHEMISTRY METHOD 01/14/2025 3:[address] [facility] eGFR 63 >=60 mL/min/1. 73m2 LAB CHEMISTRY METHOD 01/14/2025 3:[address] [facility] Comment:Calculation based on the Chronic Kidney Disease Epidemiology Collaboration (CKD-EPI) equation refit without adjustment for race. BUN/Creatinine Ratio 13.0 LAB CHEMISTRY METHOD 01/14/2025 3:[address] [facility] Calcium 9.3 8.5 - 10.5 mg/dL LAB CHEMISTRY METHOD 01/14/2025 3:[address] [facility] AST (SGOT) 14 10 - 42 unit/L LAB CHEMISTRY METHOD 01/14/2025 3:[address] [facility] ALT (SGPT) 16 10 - 60 unit/L LAB CHEMISTRY METHOD 01/14/2025 3:[address] [facility] Alkaline Phosphatase 83 42 - 121 unit/L LAB CHEMISTRY METHOD 01/14/2025 3:[address] [facility] Total Protein 6.7 6.0 - 8.0 g/dL LAB CHEMISTRY METHOD 01/14/2025 3:[address] [facility] Albumin 3.7 3.2 - 5.0 g/dL LAB CHEMISTRY METHOD 01/14/2025 3:58 PM EST [facility] Total Bilirubin 0.5 0.0 - 1.4 mg/dL LAB CHEMISTRY METHOD 01/14/2025 3:58 PM EST [facility] Blood Venous blood specimen / Unknown Venipuncture / Unknown 01/14/2025 11:05 AM EST 01/14/2025 11:06 AM EST Braden Bey MD LAB BLOOD ORDERABLES Final Resul t [facility] [address] [place] [address], * Hepatitis C Screening (11/05/2019) Pathologist [facility] Hepatitis C Screening Abstracted Historical Provider HEALTH MAINTENANCE Final Result * Colonoscopy (08/05/2019) Colonoscopy No interpretation , Abstracted Anatomical Region Laterality Modality Other Historical Provider HEALTH MAINTENANCE Final Result from Last 3 Months or Most Recently Relevant to Health Maintenance Insurance [facility] [employer] Care Teams Inspector Conveyor Line Relationship Specialty Start Date End Date Braden Bey MD [address] [place] [phone] PCP - General 12/07/22
== END 2025-09-08 12:31 | disposition home or self-care (01) ==
LOC: HO.HSM 12:07
PROVIDERS: PCP Student in an Organized Health Care Education/Training Program; Visit Provider Psychiatry & Neurology Neurology
DX: M79.7 Fibromyalgia (principal); M79.605 Pain in left leg
CPT/HCPCS: 99214

== ENCOUNTER → 2025-09-08 12:07 | Outpatient (BNVA) | payer OTHER, SELFPAY | PROVIDERS: PCP Student in an Organized Health Care Education/Training Program; Visit Provider Psychiatry & Neurology Neurology | DX: M79.7 Fibromyalgia (principal); M79.605 Pain in left leg | CPT/HCPCS: 99212 ==

== ENCOUNTER 2025-09-30 11:03 | Outpatient (REF) | payer OTHER, SELFPAY ==
--- NOTE | 2025-09-30 11:05 | EMG_ITS ---
Chief complaint:?M79.605 Pain in left leg Reason for referral: left leg pain Referred by:?Dr Duff Procedure done: Left lower extremity NCS/EMG Left peroneal and tibial motor studies were performed with F responses. Left tibial H-reflex was obtained. Left superficial peroneal and sural sensory studies were performed an EMG needle examination was performed. Findings: No significant abnormality noted. Impression: This is an unremarkable study of left lower extremity with no evidence of peripheral neuropathy or radiculopathy. Codin [id number] 1 extremity MTDD
--- OUTSIDE RECORDS SUMMARY | 2025-09-30 13:11 | XMS_ITS | Clinical Summary ---
Author Organization [facility] Address [address] [place] [address] Care Team Providers Care Scientific Research Manager Name Role Phone Angella Hdz Primary Care [...] age to complete this topic Care Teams Scientific Research Manager Relationship Specialty Start Date End Date Angella Hdz [address] [place] [address] PCP - General Internal Medicine 12/16/20
--- OUTSIDE RECORDS SUMMARY | 2025-09-30 13:11 | XMS_ITS ---
Author Name [facility] Organization Unknown Care Team Organization Name Specialty Phone Email Start Date End Da te [facility] Reva Manning Primary Care 04/02/2023 07/14/2024 [facility] Angella Hdz Primary Care 10/03/2022
== END 2025-09-30 11:04 | disposition home or self-care (01) ==
LOC: HO.NEURO 11:03
PROVIDERS: Visit Provider Psychiatry & Neurology Neurology
DX: M79.605 Pain in left leg (principal)
CPT/HCPCS: 95886; 95909

== ENCOUNTER → 2025-09-30 11:05 | Outpatient (BNV) | payer OTHER, SELFPAY | PROVIDERS: Visit Provider Psychiatry & Neurology Neurology | DX: M79.605 Pain in left leg (principal) | CPT/HCPCS: 95886; 95909 ==

== ENCOUNTER 2025-10-01 11:21 | Outpatient (AMB) | payer OTHER, SELFPAY ==
[2025-10-01 11:39] VITALS: BP 156/89; PULSE 57; RESP 16; O2SAT 97; BMI 31.6
--- NOTE | 2025-10-01 11:39 | A.OFFVIS_ITS ---
Vital Signs 10/01/25 11:39 Height 5 ft 7 in Weight 202 lb BMI 31.6 BP 156/89 H Blood Pressure Location Rt brachial Position Sitting Respiration 16 Pulse 57 Pulse Source Pulse Oximeter Pulse Oximetry (%) 97 Oxygen Delivery Method Room Air Intake Visit Reasons: Chronic Back pain Towing Pilot Required: No Accompanied by: Self / Same As Patient Allergies No Known Allergies Allergy (Verified 10/01/25 11:39) HPI Comments Details: Jesse is very pleasant 59 years old gentleman who presents in my office with complains on pain in the lower back slightly to the left with radiation of the pain down to the left lower extremity and sensation of the numbness in the left lower extremity. He reports that pain started 3 years ago. He denies trauma or accident which could explain his pain. He reports that walking hurts the most. Flexing forward aggravates his pain more than flexing backwards. He is unable to sleep normally can not do activities of daily living can not take care of himself can not function normally. He is currently on permanent disability. Weather changes in movements aggravate his pain. In terms of tissue damage he describes his pain as pulsing, throbbing, pounding, dull, hurting, heavy, tiring, exhausting, punishing, killing sensation. He reported to me that he had an MRI of the lumbar spine performed by [facility]. The results are not available for me. He had physical therapy 1 year ago and he reports no improvement with physical therapy. He reported injection of ?steroids ?to the left side of the lower back however the nature of the procedure is unknown to me. He does not take any medications for his pain. His past medical history significant for hypertension prostate problems and sexual dysfunction. 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 He den ies smoking cigarettes denies drinking alcohol he drinks coffee and he admits cannabis. [facility] Medical History (Updated 10/01/25 @ 12:39 by Noel Lau MD) Fibromyalgia Myopathy Peripheral neuropathy Polyneuropathy, unspecified Surgical History History of biopsy (08/08/23) Family History Father No problems noted. Social History Alcohol intake: never Patient Tobacco Use Status: Never used Tobacco Review of Systems Const All systems reviewed & are unremarkable except as noted in HPI and below ENT Reports Normal hearing present Neuro Reports Normal hearing present, Denies Abnormal speech present, Denies confusion and Denies Sensory deficit (Neuro) Psych Denies confusion Physical Exam Vital Signs: Last Vital Signs Pulse 57 10/01/25 11:39 Resp 16 10/01/25 11:39 BP 156/89 H 10/01/25 11:39 Pulse Ox 97 10/01/25 11:39 Oxygen Delivery Method Room Air 10/01/25 11:39 BMI result Body Mass Index 31.6 Const General: no acute distress; No confusion Nutritional Appearance: average body habitus and well nourished Orientation/consciousness: patient oriented x3 and No confusion Limitations: physical limitations Eyes General: appearance normal, both eyes and all related structures Pupils: Equal, round and reactive pupils present EOM: EOMs intact bilaterally Neck Neck: Yes full ROM Chest Chest palpation & inspection: normal inspection of the chest Resp Effort & Inspection: normal respiratory effort, able to speak in complete sentences, normal respiratory pattern, no audible wheezes and no cough Cardio Jugular venous distension: no JVD GI Inspection: Yes normal to inspection Back/Spine/Pelvis Other: Uses cane for ambulation. SLR is positive on the left. Lasegue is positive on the left. Flexing forward aggravates his pain. Segundo test is positive on the left. Bedford test is positive on the left, Stinchfield test is positive on the left, pelvic compression is equivocal for the left pain and pelvic distraction is positive on the left. No tenderness on palpation in paraspinal or spinal region of the entire lumbar and sacral spine. Neuro General: patient oriented x3, gait normal and No confusion Cranial nerves: Yes CN's II-XII intact bilaterally, Yes Equal, round and reactive pupils present, Yes Normal hearing present and Yes Ability to bilaterally elevate shoulders present Speech: No Abnormal speech present Gait exam (Neuro): Normal gait present Motor exam (neuro): 5/5 motor strength present throughout Sensory Exam: No Sensory deficit (Neuro) Extrem General: No pedal edema Psych Speech and movement: Normal speech and movement present Affect: normal affect Attitude: cooperative Thought process: Normal thought process present Thought content: Normal thought content present Insight: Good insight present (Psych) Judgement: Good judgement present (Psych) Assessment & Plan Assessment & Plan (1) Sacroiliitis: Code(s): M46.1 - Sacroiliitis, not elsewhere classified Category: Medical (2) Sacroiliac joint dysfunction of left side: Code(s): M53.3 - Sacrococcygeal disorders, not elsewhere classified Category: Medical (3) Spondylosis without myelopathy or radiculopathy, lumbar region: Code(s): M47.816 - Spondylosis without myelopathy or radiculopathy, lumbar region Category: Medical (4) Chronic pain syndrome: Code(s): G89.4 - Chronic pain syndrome Category: Medical Plan Jesse is suffering from spondylosis of the lumbar spine and most likely sacroiliitis. I offered him diagnostic left sacroiliac joint injection to diagnose his pain. I also requested him to bring me the disc from the [facility] radiology with the MRI of the lumbar spine as well as the report. He also will sign medical information release note and we will try to obtain report from [facility] radiology this way. I will see this patient after diagnostic SI joint injection. Coding Level of Care Code New Pt Level 3 (83130) Diagnoses Sacroiliitis M46.1 Sacroiliac joint dysfunction of left side M53.3 Spondylosis without myelopathy or radiculopathy, lumbar region M47.816 Chronic pain syndrome G89.4
--- OUTSIDE RECORDS SUMMARY | 2025-10-01 14:10 | XMS_ITS | Clinical Summary ---
Author Organization 175 [facility] Address [address] [place] [address] Phone Care Team Providers Care Metal Reclamation Kettle Tender Name Role Phone Braden Bey MD Primary Care Provider [phone] Allergies Active Allergy Reactions Criticality Noted Date Comments Onion 10/14/2021 Pepper (Genus Capsicum) 10/14/2021 Medications tadalafiL (CIALIS) 5 mg tablet Take 1 Tablet by mouth daily. 2 Active acetaminophen (TYLENOL) 500 mg tablet Take 1 tablet (500 mg total) by mouth every 6 (six) hours if needed for mild pain. for pain 60 tablet 4 5 Active ferrous sulfate 325 mg (65 mg iron) EC tablet Take 1 tablet (325 mg total) by mouth 1 (one) time each day with breakfast. 90 tablet 1 5 Active fexofenadine (FRANKI) 180 mg tablet TAKE 1 TABLET BY MOUTH EVERY DAY 90 tablet 1 5 Active lisinopriL (PRINIVIL,ZEST RIL) 30 mg tablet Take 1 tablet (30 mg total) by mouth 1 (one) time each day. 30 each 11 5 026 Active meloxicam (MOBIC) 7.5 mg tablet Take 1 tablet (7.5 mg total) by mouth 1 (one) time each day. 90 tablet 2 5 Active meloxicam (MOBIC) 7.5 mg tablet Take 1 tablet (7.5 mg total) by mouth at bedtime as needed for moderate pain or mild pain. 90 tablet 2 5 025 Discontinued Active Problems Problem Noted Date Diagnosed Date Primary hypertension 01/07/2025 Erectile dysfunction 01/07/2025 Prediabetes 01/07/2025 Childhood asthma 09/18/2024 Constipation 11/20/2023 Gastroesophageal reflux disease 11/20/2023 Neuropathy 10/02/2023 Overview (09/18/2024): Last Assessment & Plan: Mr. Partida continues with numbness and tingling and pain in the bilateral anterior thighs. He had an evaluation and an EMG and nerve conduction study with Dr. Duff in [place]. This did reveal a moderately severe right peroneal neuropathy and mild peripheral neuropathy affecting the sensory nerves. I once again went over his MRI's of the thoracic and lumbar spine from [facility] in March 2023. These did [...] PM EDT Office Visit Internal Medicine - [place] 175 [facility] [address] [place] [address] Braden Bey MD Chronic back pain, unspecified back location, unspecified back pain laterality (Primary Dx); Pain of left lower extremity; Elevated blood pressure reading; Hearing problem of both ears 07/24/2025 Lab Requisition [facility] - Main Lab 299 [facility] [place] [address] Janay Arzola, PA Frequency of micturition 07/17/2025 Telephone Internal Medicine - [place] 175 [facility] [address] [place] [address] Braden Bey MD 07/07/2025 Telephone Internal Medicine - [place] 175 [facility] [address] [place] [address] Braden Bey MD from Last [...] Years (1 of 2 - PCV) 1984 RSV Immunization Adult Patients (1 - Risk 50-74 years 1-dose series) 2015 Zoster Vaccines (1 of 2) 2015 Hepatitis [...] Cholesterol Screening (Lipid Panel) 01/14/2030 01/14/2025, 01/24/2023 Hepatitis C Screening Completed 11/05/2019 HIB Vaccines [...] Normal Urogenital krista. 07/25/2025 7:51 AM EDT [facility] Other Urine specimen from urethra / Unknown 07/23/2025 07/24/2025 10:21 AM EDT us Janay [facility] LAB MICROBIOLOGY - GENERAL ORDERABLES Final Result [facility] [address] [place] [address], [place] [phone] * Lipid panel with reflex to direct LDL (01/14/2025 11:05 AM EST) Cholesterol 184 0 - 200 mg/dL LAB CHEMISTRY METHOD 01/14/2025 3:58 PM EST [facility] Triglycerides 64 0 - 150 mg/dL LAB CHEMISTRY METHOD 01/14/2025 3:58 PM [facility] HDL 71 >=40 mg/dL LAB CHEMISTRY METHOD 01/14/2025 3:58 PM [facility] LDL Calculated 100 0 - 100 mg/dL LAB CHEMISTRY METHOD 01/14/2025 3:58 PM EST [facility] VLDL Cholesterol Esvin 12.8 mg/dL LAB CHEMISTRY METHOD 01/14/2025 3:58 PM [facility] Non HDL Chol. (LDL+VLDL) 113 <145 mg/dL LAB CHEMISTRY METHOD 01/14/2025 3:58 PM [facility] Chol/HDL Ratio 2.6 0.0 - 4.4 LAB CHEMISTRY METHOD 01/14/2025 3:58 PM [facility] Blood Venous blood specimen / Unknown Venipuncture / Unknown 01/14/2025 11:05 AM EST 01/14/2025 11:06 AM EST Braden Bey MD LAB BLOOD ORDERABLES Final Resul t [facility] [address] [place] [address], * (ABNORMAL) Comprehensive metabolic panel (01/14/2025 11:05 AM EST) [facility] Sodium 142 133 - 145 mmol/L LAB CHEMISTRY METHOD 01/14/2025 3:58 PM [facility] Potassium 4.1 3.5 - 5.5 mmol/L LAB CHEMISTRY METHOD 01/14/2025 3:58 PM [facility] Chloride 112(H) 96 - 110 mmol/L LAB CHEMISTRY METHOD 01/14/2025 3:58 PM [facility] CO2 24 21 - 32 mmol/L LAB CHEMISTRY METHOD 01/14/2025 3:58 PM [facility] Anion Gap 6 3 - 11 LAB CHEMISTRY METHOD 01/14/2025 3:58 PM [facility] Glucose 91 70 - 100 mg/dL LAB CHEMISTRY METHOD 01/14/2025 3:58 PM [facility] BUN 17 5 - 25 mg/dL LAB CHEMISTRY METHOD 01/14/2025 3:58 PM [facility] Creatinine 1.31(H) 0.70 - 1.30 mg/dL LAB CHEMISTRY METHOD 01/14/2025 3:58 PM [facility] eGFR 63 >=60 mL/min/1. 73m2 LAB CHEMISTRY METHOD 01/14/2025 3:58 PM [facility] Comment:Calculation based on the Chronic Kidney Disease Epidemiology Collaboration (CKD-EPI) equation refit without adjustment for race. BUN/Creatinine Ratio 13.0 LAB CHEMISTRY METHOD 01/14/2025 3:58 PM [facility] Calcium 9.3 8.5 - 10.5 mg/dL LAB CHEMISTRY METHOD 01/14/2025 3:58 PM [facility] AST (SGOT) 14 10 - 42 unit/L LAB CHEMISTRY METHOD 01/14/2025 3:58 PM [facility] ALT (SGPT) 16 10 - 60 unit/L LAB CHEMISTRY METHOD 01/14/2025 3:58 PM [facility] Alkaline Phosphatase 83 42 - 121 unit/L LAB CHEMISTRY METHOD 01/14/2025 3:58 PM [facility] Total Protein 6.7 6.0 - 8.0 g/dL LAB CHEMISTRY METHOD 01/14/2025 3:58 PM [facility] Albumin 3.7 3.2 - 5.0 g/dL LAB CHEMISTRY METHOD 01/14/2025 3:58 PM [facility] Total Bilirubin 0.5 0.0 - 1.4 mg/dL LAB CHEMISTRY METHOD 01/14/2025 3:58 PM EST [facility] Blood Venous blood specimen / Unknown Venipuncture / Unknown 01/14/2025 11:05 AM EST 01/14/2025 11:06 AM EST Braden Bey MD LAB BLOOD ORDERABLES Final Resul t [facility] [address] [place] [address], * Hepatitis C Screening (11/05/2019) Hepatitis C Screening Abstracted Historical Provider HEALTH MAINTENANCE Final Result * Colonoscopy (08/05/2019) Colonoscopy No interpretation , Abstracted Anatomical Region Laterality Modality Other Historical Provider HEALTH MAINTENANCE Final Result from Last 3 Months or Most Recently Relevant to Health Maintenance Insurance [facility] [facility] Care Teams Metal Reclamation Kettle Tender Relationship Specialty Start Date End Date Braden Bey MD [address] [phone] PCP - General 12/07/22
--- OUTSIDE RECORDS SUMMARY | 2025-10-01 14:11 | XMS_ITS | Encounter Summary ---
Author Organization [facility] Address [address] [place] [address] Care Team Providers Care Roadway Engineer Name Role Phone Braden Bey MD Primary Care Provider [phone] Encounter Details Date Type Department Care Team (Late st Contact Info) Description 07/24/2025 Lab Requisition [facility] - Main Lab [address] [facility] [place] [address] [place] Ar[place] [address] [place] [address] Frequency of micturition Social History Tobacco Use [...] Normal Urogenital krista. 07/25/2025 7:51 AM EDT [facility] Other Urine specimen from urethra / Unknown 07/23/2025 07/24/2025 10:21 AM EDT us Janay [facility] MICROBIOLOGY - GENERAL ORDERABLES Final Result [facility] [address] [place] [address], documented in this encounter Visit Diagnoses Diagnosis Frequency of micturition Urinary frequency documented in this encounter Care Teams Roadway Engineer Relationship Specialty Start Date End Date Braden Bey MD [address] [place] [address] PCP - General 12/07/22 documented as of this encounter
--- OUTSIDE RECORDS SUMMARY | 2025-10-01 14:11 | XMS_ITS | Clinical Summary ---
Author Organization [facility] Address [address] [place] [address] Care Team Providers Care Parasitologist Name Role Phone Angella Hdz Primary Care [...] age to complete this topic Care Teams Parasitologist Relationship Specialty Start Date End Date Angella Hdz [address] [place] [address] PCP - General Internal Medicine 12/16/20
== END 2025-10-01 12:51 | disposition home or self-care (01) ==
LOC: HO.PMC 11:22
PROVIDERS: PCP Student in an Organized Health Care Education/Training Program; Visit Provider Anesthesiology
DX: M46.1 Sacroiliitis, not elsewhere classified (principal); M53.3 Sacrococcygeal disorders, not elsewhere classified; M47.816 Spondylosis without myelopathy or radiculopathy, lumbar region; G89.4 Chronic pain syndrome
CPT/HCPCS: 99203

== ENCOUNTER → 2025-10-01 11:21 | Outpatient (BNVA) | payer OTHER, SELFPAY | PROVIDERS: PCP Student in an Organized Health Care Education/Training Program; Visit Provider Anesthesiology | DX: G89.4 Chronic pain syndrome (principal); M53.3 Sacrococcygeal disorders, not elsewhere classified; M47.816 Spondylosis without myelopathy or radiculopathy, lumbar region; M46.1 Sacroiliitis, not elsewhere classified | CPT/HCPCS: 99202 ==

== ENCOUNTER 2025-10-05 11:53 | Outpatient (AMB) | payer OTHER, SELFPAY ==
--- NOTE | 2025-10-05 12:01 | A.OFFVIS_ITS ---
Intake Visit Reasons: AFTER ncv/emg Allergies No Known Allergies Allergy (Verified 10/01/25 11:39) Medication List - Last Reconciled 10/05/25 by William Duff MD acetaminophen 500 mg PO Q6H PRN albuterol sulfate 90 mcg/actuation (Ventolin HFA) 2 puffs inhalation Q4H PRN duloxetine 20 mg PO DAILY ergocalciferol (vitamin D2) 1,250 mcg PO QWEEK ferrous sulfate 325 mg PO QAM lisinopril 20 mg PO DAILY tadalafil (Cialis) 5 mg PO DAILY tizanidine 4 mg PO BID PRN HPI Comments Details: 59 years old man with chronic back pain, which has been treated with cortisone injections though her imaging did not reveal any obvious nerve root compression, and bilateral foot pain and numbness. More recently, he has complain of more severe left leg radicular type of pain suggestive of sciatica which he has complain of before. An EMG nerve conduction study September of 2025 was done that did not reveal any sign of nerve entrapment. Previously Lyme and syphilis serologies have been negative. He is presenting with chronic pain and fibromyalgia. Initially evaluated in 2022, the patient has experienced persistent back and left leg pain with no significant findings from imaging or nerve tests. Pain is reported as severe (9- 10/10), impacting mobility and daily activities. Previous treatments, including cortisone injections and meloxicam, provided no relief. Despite not taking duloxetine, a common fibromyalgia treatment, the patient is experiencing debilitating pain, describing difficulties with basic movements like car entry/exit. New treatment trials include cyclobenzaprine. Chronic nature and previous ineffective treatments underscore the complexity of his condition. [facility] Medical History (Updated 10/05/25 @ 12:08 by William Duff MD) Fibromyalgia Myopathy Peripheral neuropathy Polyneuropathy, unspecified Surgical History History of biopsy (08/08/23) Family History Father No problems noted. Social History Alcohol intake: never Patient Tobacco Use Status: Never used Tobacco Physical Exam Neuro Other: Mental Status: Alert and oriented to person, place, and time. Normal attention. Normal spontaneous speech, fluency, and comprehension. No obvious issues with mood and memory. Affect is appropriate. Cranial Nerves: CN II: Visual dumont full to confrontation, visual acuity intact. CN III, IV, : Pupils equal, round, reactive to light and accommodation. Extraocular movements are normal. CN V: Facial sensation is normal. CN VII: Facial movements symmetrical. CN VIII: Hearing intact to bedside conversation is normal. CN IX, X: Palate elevates symmetrically. CN XI: Shoulder shrug and head turn symmetrical. CN XII: Tongue midline without atrophy or fasciculations. He is walking with a cane favoring his left leg. Extrapyramidal: Full facial expressions and blinking. No rigidity. Movements are appropriate with no tremor or abnormality. Speech: Normal; no dysarthria or tremor. Assessment & Plan Assessment & Plan (1) Fibromyalgia: Comment: Meds tried: Duloxetine, Gabapentin, tizanidine EMG/NCS L LE at [facility] in Sep 2025: WNL Muscle biopsy at [facility] in Jul 2023: rare angulated atrophic fibers (probably neuropathic injury) MRI LS spine WO at [facility] in March 2023: Mild DJD MRI T spine WO at [facility] in March 2023: Mild DJD NCV/EMG LE (in office) Moderately severe right peroneal neuropathy. Mild peripheral neuropathy affecting sensory nerves. 06/13/23 Code(s): M79.7 - Fibromyalgia Category: Medical Plan Impression: Chronic back and left leg pain with radicular pattern with no significant explanation noted on imaging and a negative EMG nerve conduction study. Recommendations: 1. Reassurance and education 2. Try cyclobenzaprine 5 mg twice a day for pain control Medications: New cyclobenzaprine 5 mg PO BID 30 tabs 2RF Coding Level of Care Code Est Pt Level 3 (77327) Diagnoses Fibromyalgia M79.7
--- OUTSIDE RECORDS SUMMARY | 2025-10-05 14:17 | XMS_ITS | Clinical Summary ---
Author Organization [address] [facility] Address [address] [place] [address] Phone Care Team Providers Care Vault Keeper Name Role Phone Braden Bey MD Primary Care Provider [phone] Allergies Active Allergy Reactions Criticality Noted Date [...] nerve conduction study with Dr. Duff in [place]. This did reveal a moderately severe right peroneal neuropathy and mild peripheral neuropathy affecting the sensory nerves. I once again went over his MRI's of the thoracic and lumbar spine from [facility] in March 2023. These did [...] PM EDT Office Visit [facility] [place] [address] [facility] [address] [place] [address] Braden Bey MD Chronic back pain, unspecified back location, unspecified back pain laterality (Primary Dx); Pain of left lower extremity; Elevated blood pressure reading; Hearing problem of both ears 07/24/2025 Lab Requisition [facility] - Main Lab [address] [facility] [place] [address] Janay Arzola, [place] Frequency of micturition 07/17/2025 Telephone [facility] [place] [address] [facility] [address] [place] [address] Braden Bey MD 07/07/2025 Telephone [facility] [place] [address] [facility] [address] [place] [address] Braden Bey MD from Last [...] Normal Urogenital krista. 07/25/2025 7:51 AM EDT [facility] Other Urine specimen from urethra / Unknown 07/23/2025 07/24/2025 10:21 AM EDT us Janay [facility] MICROBIOLOGY - GENERAL ORDERABLES Final Result [facility] [address] [place] [address], [place] [phone] * Lipid panel with reflex to direct LDL (01/14/2025 11:05 AM EST) Cholesterol 184 0 - 200 mg/dL LAB CHEMISTRY METHOD 01/14/2025 3:58 PM EST [facility] Triglycerides 64 0 - 150 mg/dL LAB CHEMISTRY METHOD 01/14/2025 3:58 PM [facility] HDL 71 >=40 mg/dL LAB CHEMISTRY METHOD 01/14/2025 3:58 PM [facility] LDL Calculated 100 0 - 100 mg/dL LAB CHEMISTRY METHOD 01/14/2025 3:58 PM EST [facility] VLDL Cholesterol Esvin 12.8 mg/dL LAB CHEMISTRY METHOD 01/14/2025 3:58 PM [facility] Non HDL Chol. (LDL+VLDL) 113 <145 mg/dL LAB CHEMISTRY METHOD 01/14/2025 3:58 PM [facility] Chol/HDL Ratio 2.6 0.0 - 4.4 LAB CHEMISTRY METHOD 01/14/2025 3:58 PM [facility] Blood Venous blood specimen / Unknown Venipuncture / Unknown 01/14/2025 11:05 AM EST 01/14/2025 11:06 AM EST Braden Bey MD LAB BLOOD ORDERABLES Final Resul t [facility] [address] [place] [address], * (ABNORMAL) Comprehensive metabolic panel (01/14/2025 11:05 AM EST) [facility] Sodium 142 133 - 145 mmol/L LAB CHEMISTRY METHOD 01/14/2025 3:58 PM [facility] Potassium 4.1 3.5 - 5.5 mmol/L LAB CHEMISTRY METHOD 01/14/2025 3:58 PM [facility] Chloride 112(H) 96 - 110 mmol/L LAB CHEMISTRY METHOD 01/14/2025 3:58 PM [facility] CO2 24 21 - 32 mmol/L LAB CHEMISTRY METHOD 01/14/2025 3:58 PM [facility] Anion Gap 6 3 - 11 LAB CHEMISTRY METHOD 01/14/2025 3:58 PM [facility] Glucose 91 70 - 100 mg/dL LAB CHEMISTRY METHOD 01/14/2025 3:58 PM [facility] BUN 17 5 - 25 mg/dL LAB CHEMISTRY METHOD 01/14/2025 3:58 PM [facility] Creatinine 1.31(H) 0.70 - 1.30 mg/dL LAB CHEMISTRY METHOD 01/14/2025 3:58 PM [facility] eGFR 63 >=60 mL/min/1. 73m2 LAB CHEMISTRY METHOD 01/14/2025 3:58 PM [facility] Comment:Calculation based on the Chronic Kidney Disease Epidemiology Collaboration (CKD-EPI) equation refit without adjustment for race. BUN/Creatinine Ratio 13.0 LAB CHEMISTRY METHOD 01/14/2025 3:58 PM [facility] Calcium 9.3 8.5 - 10.5 mg/dL LAB CHEMISTRY METHOD 01/14/2025 3:58 PM [facility] AST (SGOT) 14 10 - 42 unit/L LAB CHEMISTRY METHOD 01/14/2025 3:58 PM [facility] ALT (SGPT) 16 10 - 60 unit/L LAB CHEMISTRY METHOD 01/14/2025 3:58 PM [facility] Alkaline Phosphatase 83 42 - 121 unit/L LAB CHEMISTRY METHOD 01/14/2025 3:58 PM [facility] Total Protein 6.7 6.0 - 8.0 g/dL LAB CHEMISTRY METHOD 01/14/2025 3:58 PM [facility] Albumin 3.7 3.2 - 5.0 g/dL LAB CHEMISTRY METHOD 01/14/2025 3:58 PM [facility] Total Bilirubin 0.5 0.0 - 1.4 mg/dL LAB CHEMISTRY METHOD 01/14/2025 3:58 PM EST [facility] Blood Venous blood specimen / Unknown Venipuncture / Unknown 01/14/2025 11:05 AM EST 01/14/2025 11:06 AM EST Braden Bey MD LAB BLOOD ORDERABLES Final Resul t [facility] [address] [place] [address], * Hepatitis C Screening (11/05/2019) Hepatitis C Screening Abstracted Historical Provider HEALTH MAINTENANCE Final Result * Colonoscopy (08/05/2019) Colonoscopy No interpretation , Abstracted Anatomical Region Laterality Modality Other Historical Provider HEALTH MAINTENANCE Final Result from Last 3 Months or Most Recently Relevant to Health Maintenance Insurance [facility] Care Teams Vault Keeper Relationship Specialty Start Date End Date Braden Bey MD [address] [address] PCP - General 12/07/22
--- OUTSIDE RECORDS SUMMARY | 2025-10-05 14:17 | XMS_ITS | Encounter Summary ---
Author Organization [facility] Address [address] [place] [address] Care Team Providers Care Food Cart Attendant Name Role Phone Braden Bey MD Primary Care Provider [phone] Encounter Details Date Type Department Care Team (Late st Contact Info) Description 07/24/2025 Lab Requisition [facility] - Main Lab [address] [facility] [place] [address] Janay Arzola, [place] [address] [place] [address] Frequency of micturition Social History Tobacco Use [...] Normal Urogenital krista. 07/25/2025 7:51 AM EDT [facility] Other Urine specimen from urethra / Unknown 07/23/2025 07/24/2025 10:21 AM EDT us Janay [facility] MICROBIOLOGY - GENERAL ORDERABLES Final Result [facility] [address] [place] [address], documented in this encounter Visit Diagnoses Diagnosis Frequency of micturition Urinary frequency documented in this encounter Care Teams Food Cart Attendant Relationship Specialty Start Date End Date Braden Bey MD [address] [place] [address] PCP - General 12/07/22 documented as of this encounter
--- OUTSIDE RECORDS SUMMARY | 2025-10-05 14:17 | XMS_ITS | Clinical Summary ---
Author Organization [facility] Address [address] [place] [address] Care Team Providers Care Wooden Furniture Polisher Name Role Phone Angella Hdz Primary Care [...] age to complete this topic Care Teams Wooden Furniture Polisher Relationship Specialty Start Date End Date Angella Hdz [address] [place] [address] PCP - General Internal Medicine 12/16/20
== END 2025-10-05 12:28 | disposition home or self-care (01) ==
LOC: HO.HSM 11:53
PROVIDERS: PCP Student in an Organized Health Care Education/Training Program; Visit Provider Psychiatry & Neurology Neurology
DX: M79.7 Fibromyalgia (principal)
CPT/HCPCS: 99213

== ENCOUNTER → 2025-10-05 11:53 | Outpatient (BNVA) | payer OTHER, SELFPAY | PROVIDERS: PCP Student in an Organized Health Care Education/Training Program; Visit Provider Psychiatry & Neurology Neurology | DX: M79.7 Fibromyalgia (principal); M54.50 Low back pain, unspecified; G89.29 Other chronic pain | CPT/HCPCS: 99212 ==